=== PATIENT | male | born 1980 | race Caucasian/White ===

== ENCOUNTER 2017-02-05 04:20 | Inpatient (IN) | payer BC ==
[~2017-02-05] VITALS: Ht 182.9 cm; Wt 78.2 kg
[2017-02-05 08:21] VITALS: BP 136/73
[2017-02-05] MEDS ORDERED: ZOLPIDEM TARTRATE 10 MG TABLET PO PRN (08:45)
[2017-02-05] MEDS ORDERED: HALOPERIDOL 5 MG TABLET PO PRN (08:45)
[2017-02-05] MEDS ORDERED: ACETAMINOPHEN 325 MG TABLET PO PRN (09:30)
[2017-02-05 09:38] VITALS: BP 123/78
[2017-02-05] MEDS ORDERED: RISP2 PO (09:39)
[2017-02-05] MEDS ORDERED: BACTDSB PO (09:39)
[2017-02-05] MEDS ORDERED: DOXY100C PO (09:39)
[2017-02-05] MEDS ORDERED: SULF1TAB41 PO (09:41)
[2017-02-05] MEDS: RisperiDONE 2 MG TABLET PO SCH ×2 (13:00→17:01)
[2017-02-05] MEDS: SULFAMETHOX/TRIMETH DS 800-160 MG/TABLET PO SCH ×2 (13:00→17:01)
[2017-02-05] MEDS: LORazepam 2 MG TABLET PO PRN (14:26)
[2017-02-05 16:00] VITALS: BP 121/77
[2017-02-05] MEDS: DOXYCYCLINE 100 MG CAPSULE PO SCH (20:43)
[2017-02-06 04:47] VITALS: BP 143/88
[2017-02-06 08:29] LABS: BASOPHILS % (AUTO) 0.4 % (0.0-2.0); EOSINOPHILS % (AUTO) 0.9 % (1.0-6.0); HEMATOCRIT 41.3 % (41-53); HEMOGLOBIN 13.5 g/dL (13.5-17.5); LYMPHOCYTES # (AUTO) 0.7 K/uL (1.0-4.8); LYMPHOCYTES % (AUTO) 11.5 % (22.0-44.0); MEAN CORPUSCULAR HEMOGLOBIN 31.2 pg (26.0-34.0); MEAN CORPUSCULAR HGB CONC 32.7 G/dL (31.0-37.0); MEAN CORPUSCULAR VOLUME 95 fL (80-100); MONOCYTES # (AUTO) 0.3 K/uL (0.1-1.0); MONOCYTES % (AUTO) 5.1 % (2.0-9.0); NEUTROPHILS # (AUTO) 5.1 K/uL (1.8-7.7); NEUTROPHILS % (AUTO) 82.1 % (40.0-70.0); PLATELET COUNT (AUTO) 212 K/uL (150-450); RED BLOOD CELL COUNT(AUTO) 4.33 MIL/uL (4.50-5.90); RED CELL DISTRIBUTION WIDTH 13.4 % (11.5-14.5); WHITE BLOOD COUNT (AUTO) 6.2 K/uL (4.5-11.0)
[2017-02-06] MEDS: DOXYCYCLINE 100 MG CAPSULE PO SCH ×2 (08:41→20:46)
[2017-02-06] MEDS: LORazepam 2 MG TABLET PO PRN (08:41)
[2017-02-06] MEDS: SULFAMETHOX/TRIMETH DS 800-160 MG/TABLET PO SCH ×2 (08:41→17:00)
[2017-02-06] MEDS: RisperiDONE 2 MG TABLET PO SCH ×2 (08:41→17:00)
[2017-02-06 08:42] VITALS: BP 139/78
[2017-02-06] MEDS ORDERED: MAGNESIUM HYDROXIDE SUSPENSION 30 ML UDCUP PO PRN (09:00)
[2017-02-06] MEDS ORDERED: ALBUTEROL SULFATE HFA 90 MCG/PUFF 8 GM INHALER IH PRN (09:00)
[2017-02-06] MEDS ORDERED: ACETAMINOPHEN 325 MG TABLET PO PRN (09:00)
[2017-02-06] MEDS ORDERED: BENZOCAINE/MENTHOL LOZENGE MM PRN (09:00)
[2017-02-06] MEDS ORDERED: MAG HYDROX/AL HYDROX/SIMETH ES 30 ML SUSPENSION UDCUP PO PRN (09:00)
[2017-02-06] MEDS ORDERED: PETROLATUM,WHITE 71 GM JELLY TP PRN (09:00)
[2017-02-06] MEDS ORDERED: CloNIDine HCL 0.1 MG TABLET PO PRN (09:00)
[2017-02-06] MEDS ORDERED: IBUPROFEN 600 MG TABLET PO PRN (09:00)
[2017-02-06] MEDS ORDERED: BACITRACIN 28.4 GM OINTMENT TP PRN (09:00)
[2017-02-06] MEDS ORDERED: ONDANSETRON HCL 4 MG TABLET PO PRN (09:00)
[2017-02-06] MEDS ORDERED: LOPERAMIDE HCL 2 MG CAPSULE PO PRN (09:00)
[2017-02-06 09:05] LABS: ALANINE AMINOTRANSFERASE 24 U/L (12-78); ALBUMIN 3.3 g/dL (3.4-5.0); ANION GAP 9 mmol/L (8-16); ASPARTATE AMINOTRANSFERASE 18 U/L (15-37); BILIRUBIN,TOTAL 0.2 mg/dL (0.1-1.0); CALCIUM, TOTAL 8.7 mg/dL (8.8-10.5); CARBON DIOXIDE 27 mmol/L (22-29); CHLORIDE 104 mmol/L (98-107); GLOMERULAR FILTR. RATE CALC > 60 mL/min (>60); POTASSIUM 3.8 mmol/L (3.5-5.1); SODIUM SERUM 140 mmol/L (136-145); TOTAL PROTEIN, SERUM 6.5 g/dL (6.4-8.2); UREA NITROGEN, BLOOD 7 mg/dL (7-18)
[2017-02-06 09:16] VITALS: BP 130/74
[2017-02-06] MEDS: IBUPROFEN 600 MG TABLET PO PRN (09:16)
[2017-02-06] MEDS ORDERED: LORazepam 2 MG/ML VIAL ONE (15:54)
[2017-02-06] MEDS ORDERED: DiphenhydrAMINE HCL 50 MG/ML VIAL ONE (15:55)
[2017-02-06] MEDS ORDERED: HALOPERIDOL LACTATE 5 MG/ML VIAL ONE (15:55)
[2017-02-06 16:35] VITALS: BP 134/74
[2017-02-06 16:55] VITALS: BP 128/82
[2017-02-06] MEDS ORDERED: HALOPERIDOL LACTATE 5 MG/ML VIAL IM ONE (17:00)
[2017-02-06] MEDS ORDERED: DiphenhydrAMINE HCL 50 MG/ML VIAL IM ONE (17:00)
[2017-02-06] MEDS ORDERED: LORazepam 2 MG/ML VIAL IM ONE (17:00)
[2017-02-07 04:21] VITALS: BP 126/82
[2017-02-07] MEDS: IBUPROFEN 600 MG TABLET PO PRN (04:23)
[2017-02-07 08:10] VITALS: BP 132/86
[2017-02-07] MEDS: TRIAMCINOLONE 0.1% 15 GM OINTMENT TP SCH ×3 (09:00→16:33)
[2017-02-07] MEDS ORDERED: TRIAMCINOLONE 0.1% 15 GM OINTMENT TP SCH (09:00)
[2017-02-07] MEDS: DiphenhydrAMINE HCL 50 MG CAPSULE PO SCH ×3 (09:49→16:33)
[2017-02-07] MEDS: RisperiDONE 2 MG TABLET PO SCH ×2 (09:49→16:33)
[2017-02-07 16:00] VITALS: BP 121/68
[2017-02-07] MEDS: LORazepam 2 MG TABLET PO PRN (16:33)
[2017-02-08 06:30] VITALS: BP 120/76
[2017-02-08 08:19] VITALS: BP 120/80
[2017-02-08] MEDS: DiphenhydrAMINE HCL 50 MG CAPSULE PO SCH ×2 (09:00→13:00)
[2017-02-08] MEDS: RisperiDONE 2 MG TABLET PO SCH (09:17)
[2017-02-08] MEDS: TRIAMCINOLONE 0.1% 15 GM OINTMENT TP SCH ×2 (09:17→13:17)
[2017-02-08] MEDS: LORazepam 2 MG TABLET PO PRN (09:17)
== END 2017-02-08 13:25 | disposition home or self-care (01) | DRG 885 ==
LOC: EDSTATUS 04:24 → B3A 08:47 → EDSTATUS 09:25
DX: F31.2 Bipolar disorder, current episode manic severe with psychotic features (principal); L03.115 Cellulitis of right lower limb; F41.9 Anxiety disorder, unspecified; F12.90 Cannabis use, unspecified, uncomplicated; K59.00 Constipation, unspecified; G47.00 Insomnia, unspecified; F17.200 Nicotine dependence, unspecified, uncomplicated; T36.95XA Adverse effect of unspecified systemic antibiotic, initial encounter; L27.1 Localized skin eruption due to drugs and medicaments taken internally; Z72.89 Other problems related to lifestyle; Z88.2 Allergy status to sulfonamides; Z71.6 Tobacco abuse counseling; Z71.41 Alcohol abuse counseling and surveillance of alcoholic; Z71.51 Drug abuse counseling and surveillance of drug abuser; Z79.899 Other long term (current) drug therapy; Y93.89 Activity, other specified; Y92.89 Other specified places as the place of occurrence of the external cause; Y99.8 Other external cause status; Z59.0 Homelessness
CPT/HCPCS: 87081; J1200; J1630; J2060